=== PATIENT | male | born 1995 | race Caucasian/White ===

== ENCOUNTER 2019-05-08 10:30 | Day surgery (SDC) ==
[2019-05-02 11:21] LABS: HEMATOCRIT 46.1 % (42.0-52.0); HEMOGLOBIN 15.9 g/dL (14.0-18.0); MCH 31.2 PG (27-31); MCHC 34.5 g/dL (33-37); MCV 90.6 FL (81-99); MPV 10.1 FL (7.4-10.4); RBC 5.09 XMIL (4.7-6.1); RDW 12.4 % (11.5-14.5); WBC 5.63 X1000 (4.8-10.8)
[2019-05-08] MEDS ORDERED: STERILE WATER INJ. ONE (10:57)
[2019-05-08] MEDS ORDERED: FENTANYL ONE (10:57)
[2019-05-08] MEDS ORDERED: NORCURON ONE (10:57)
[2019-05-08] MEDS ORDERED: LR 1,000 ML ONE (10:58)
[2019-05-08] MEDS ORDERED: DIPRIVAN 1% ONE (10:58)
[2019-05-08] MEDS ORDERED: KEFZOL 1 GM/D5W 1 GM/50 ML IVPB ONE (10:58)
[2019-05-08] MEDS ORDERED: XYLOCAINE-MPF 2% ONE (10:59)
[2019-05-08] MEDS ORDERED: ROBINUL ONE ×2 (10:59→13:28)
[2019-05-08] MEDS ORDERED: QUELICIN (DOSE) ONE (10:59)
[2019-05-08] MEDS ORDERED: VERSED ONE (11:04)
[2019-05-08] MEDS ORDERED: MARCAINE 0.25% PF/EPI 1:200,000 ONE (11:44)
[2019-05-08] MEDS ORDERED: DECADRON ONE (13:28)
[2019-05-08] MEDS ORDERED: ZOFRAN ONE (13:28)
[2019-05-08] MEDS ORDERED: NEOSTIGMINE ONE (13:28)
[2019-05-08] MEDS ORDERED: TORADOL ONE (15:06)
[2019-05-08] MEDS ORDERED: NORCO-10 ONE (16:08)
[2019-05-08] MEDS: DILAUDID ONE ×4 (16:08→16:25)
[2019-05-08] MEDS ORDERED: ZOFRAN IV PRN (16:54)
[2019-05-08] MEDS: PERCOCET-10 PO PRN (20:40)
--- NOTE | 2019-05-08 20:43 | OPERATIVE NOTE ---
PROCEDURE DATE: 05/08/2019 PROCEDURE PERFORMED: Robotic assisted left indirect inguinal hernia repair with Bard 3D Max mesh. SURGEON: Dr. Marco A MD. STATISTICAL FINANCIAL ANALYST: Isis Hill. PREOPERATIVE DIAGNOSIS: Left inguinal hernia. POSTOPERATIVE DIAGNOSIS: Indirect left inguinal hernia. FINDINGS: The patient had a large indirect sac that extended down into the inguinal canal a long way. DESCRIPTION OF PROCEDURE: Satisfactory general endotracheal anesthesia was achieved. The patient was placed in the Shane stirrups. The abdomen is prepped and draped in a sterile fashion. We anesthetized the skin in the epigastrium, made a vertical incision, dissected down the fascia, scored the fascia, introduced a 12 trocar into the abdominal cavity. We insufflated through this trocar. Under direct visualization, I used an 8 robotic trocar in the left upper quadrant, 8 robotic trocar in the right upper quadrant. The robot was brought between the legs. The patient was placed in profound Trendelenburg. The robot was then docked. I went to the console. I inspected the right side. There was a dimple there but no hernia. On the left was where the pathology was. We used a scissor on the right and a cotea on the left. We scored the peritoneum medially and then went from medial to lateral. We dissected in the preperitoneal space. We dissected medially down to Blaine's ligament. We dissected laterally and dissected the hernia sac away from the lateral abdominal wall. We then began retracting the hernia sac and it was quite difficult to differentiate the hernia sac from the cord structures. We actually had to switch to a ProGrasp on the left hand and used a cotea on the right to dissect deep into the inguinal canal and retract and dissected the hernia sac away from the cord structures. With much manipulation and retraction, we were able to finally separate the hernia sac from the cord structures and prolapse it completely into the abdominal cavity. We dissected behind the cord structures and had a good space there as well. We were satisfied with our space in the preperitoneum so we introduced the Bard 3D Max mesh for the left side and positioned it over the inguinal floor. We then introduced a 2-0 Polysorb stitch and secured it at the Poupart's ligament x2, cephalad and medially to the anterior abdominal wall and then lateral and cephalad in the anterior abdominal wall. So 4 different places we secured the mesh to the pelvic floor. I then proceeded to close the peritoneum with a 2-0 V lock from lateral to medial. We placed one additional stitch to secure the hernia sac to the peritoneum to help prevent any prolapse of the hernia sac back into the retroperitoneum toward the inguinal canal. This was done with 2-0 Polysorb. All the needles were removed safely. The peritoneum was intact. No mesh was exposed. We then scrubbed back in. The robot was undocked. I then used a Pablo-Maricarmen closure for the two 8 trocars in closed the fascia in the epigastrium under direct visualization. We then closed the skin at each incision with 4-0 Polysorb subcuticular stitches. Steri-Strips, OpSites were applied. He tolerated it well. He was sent to the recovery room in satisfactory condition. cc: Dawood Strickland MD
[2019-05-08] MEDS ORDERED: DILAUDID IV ONE (22:28)
[2019-05-09] MEDS: PERCOCET-10 PO PRN ×2 (02:41→07:23)
[2019-05-09 04:54] VITALS: BP 114/56
--- NOTE | 2019-05-09 14:35 | GENERAL SURGERY PROGRESS NOTE ---
DATE: 05/09/2019 Dion was able to urinate through the night finally and empty his bladder satisfactorily. His wounds look okay this morning. Scrotum is not particularly swollen. We will discharge him this morning. He already has his prescriptions. He will return to see me in the office in a week. Activity was discussed. cc: Dawood Strickland MD
== END 2019-05-09 07:51 | disposition home or self-care (01) ==
LOC: 3N 10:30 → OR 10:30
PROVIDERS: ATTEND Surgery